=== PATIENT | female | born 1945 | race Caucasian/White ===

== ENCOUNTER → 2017-11-12 | Outpatient (CLI) | payer MEDICARE, BC ==
[~2017-11-12] MED LIST: ASA81BEC PO; ATORVASTATIN CA20 MG PO; AZITHROMYCIN 2250 MG PO; B COMPLEX1 EAC1 PO; B-12250 MCG PO; CALCIUM500 MG PO; CARVEDILOL12.5 MG PO; CARVEDILOL25 MG PO; CEFDINIR300 MG PO; CLEOCIN HCL300 MG PO; CO Q-10100 MG PO; COLACE100 MG PO; COQ1050 MG PO; COZAAR 50 MG TA50 M1 PO; COZAAR 50 MG TA50 M2 PO; DUONEB 2.5-0.5 M3 ML INH; ENTRESTO 24 MG1 EACH PO; FOLIC ACID1 MG PO; GLUCOSAMINE HC500 MG PO; KLOR-CON 1010 MEQ PO; L-THYROXINE PO; LASIX 40 MG TAB40 M1 PO; LEVOTHYROXINE 0.1 MG PO; MAXIMUM DAILY1 EACH PO; MIRAPEX0.125 MG PO; NITROGLYCERIN0.4 MG SL; NORCO 5-325 TA1 EACH PO; OMEGA 3 FISH O1 EACH PO; PERIOGARD473 ML SWISH&SPIT; PLAVIX 75 MG TA75 M1 PO; POTASSIUM20 PO; PREDNISONE 10 M10 MG PO; PULMICORT0.5 MG/22 INH; SINGULAIR 10 MG10 M1 PO; SYNTHROID100 MCG PO; TESSALON PERLE100 MG PO; TUMS PO; VITAMIN C1000 MG PO; VITAMIN D1000 UNI1 PO; VITAMIN E400 UNI3 PO; VITAMIN E400 UNIT PO; VITAMINC500 PO; ZETIA10 MG PO; ZOLOFT 50 MG TA50 M1 PO
== END ==
LOC: M.RAD 10:48
DX: J98.11 Atelectasis (principal)

== ENCOUNTER → 2018-12-09 | Outpatient (CLI) | payer MEDICARE, BC | LOC: M.RAD 12:06 | DX: I51.7 Cardiomegaly (principal); Z95.0 Presence of cardiac pacemaker ==

== ENCOUNTER → 2019-01-28 | Outpatient (CLI) | payer MEDICARE, BC ==
--- NOTE | 2019-01-28 13:21 | 2DMMODE ---
[place] [address] 2 D/M-MODE ECHOCARDIOGRAM Name: MAURICIO DOUGLAS Room: [facility]#: [id number] Admission: 01/28/19 Attend Phys: Yudelka Sheridan, Discharge: Date of : 41 Date of Service: 01/28/19 1320 Report #: [id number] THIS REPORT FOR: //name// APPROVED REPORT Study performed: 01/28/2019 09:48:14 EXAM: Comprehensive 2D, Doppler, and color-flow Echocardiogram Patient Location: Out-Patient BSA: 1.84 HR: 61 bpm BP: 110/58 mmHg Other Information Study Quality: Good Indications Cardiomyopathy 2D Dimensions IVSd: 9.26 (7-11mm) LVOT Diam: 20.02 (18-24mm) LVDd: 48.74 mm PWd: 7.74 (7-11mm) Ascending Ao: 26.01 (22-36mm) LVDs: 38.53 (25-40mm) Aortic Root: 24.37 mm Volumes Left Atrial Volume (Systole) LA ESV Index: 20.20 mL/m2 Aortic Valve AoV Peak Raphael.: 1.49 m/s AO Peak Gr.: 8.82 mmHg LVOT Max P.50 mmHg AO Mean Gr.: 4.91 mmHg LVOT Mean P.73 mmHg LVOT Max V: 0.61 m/s AO V2 VTI: 32.22 cm LVOT Mean V: 0.39 m/s SRAVANTHI (VTI): 1.54 cm2 LVOT V1 VTI: 15.77 cm Mitral Valve E/A Ratio: 1.59 MV Decel. Time: 211.34 ms MV E Max Raphael.: 0.79 m/s MV PHT: 61.29 ms MVA (PHT): 3.59 [place] [address] 2 D/M-MODE ECHOCARDIOGRAM Name: MAURICIO DOUGLAS Room: [facility]#: [id number] Admission: 01/28/19 Attend Phys: Yudelka Sheridan, Discharge: Date of : 41 Date of Service: 01/28/19 1320 Report #: [id number] TDI E/Lateral E': 9.88 E/Medial E': 8.78 Medial E' Raphael.: 0.09 m/s Lateral E' Raphael.: 0.08 m/s Pulmonary Valve PV Peak Raphael.: 0.67 m/s PV Peak Gr.: 1.81 mmHg Tricuspid Valve RAP Estimate: 5.00 mmHg TR Peak Gr.: 21.27 mmHg RVSP: 26.27 mmHg PA Pressure: 26.27 mmHg Left Ventricle The left ventricle is normal size. There is moderate diffuse hypokinesis of left ventricular wall motion. There is normal left ventricular wall thickness. Left ventricular systolic function is moderate to severely decreased. LVEF is 30-35%. The left ventricular diastolic function is normal. Right Ventricle The right ventricle is normal size. The right ventricular systolic function is normal. Pacemaker lead is present in the right ventricle. Atria The left atrium size is normal. Pacemaker lead is present in the right atrium. Aortic Valve Aortic valve is mildly calcified. Mild aortic regurgitation. There is no aortic valvular stenosis. Mitral Valve The mitral valve is normal in structure. Mild mitral regurgitation. No evidence of mitral valve stenosis. Tricuspid Valve The tricuspid valve is normal in structure. Mild tricuspid regurgitation. Pulmonic Valve The pulmonary valve is normal in structure. There is no pulmonic valvular reg[place]itation[place] [address] 2 D/M-MODE ECHOCARDIOGRAM Name: MAURICIO DOUGLAS Room: [facility]#: [id number] Admission: 01/28/19 Attend Phys: Yudelka Sheridan, Discharge: Date of : 41 Date of Service: 01/28/19 1320 Report #: [id number] The aortic root is normal in size. IVC is normal in size and collapses >50% with inspiration. Pericardium There is no pericardial effusion. <Conclusion> The left ventricle is normal size. There is normal left ventricular wall thickness. Left ventricular systolic function is moderate to severely decreased. LVEF is 30-35%. The left ventricular diastolic function is normal. The right ventricle is normal size. The left atrium size is normal. Pacemaker lead is present in the right atrium. Aortic valve is mildly calcified. Mild aortic regurgitation. There is no aortic valvular stenosis. The mitral valve is normal in structure. Mild mitral regurgitation. The tricuspid valve is normal in structure. Mild tricuspid regurgitation. IVC is normal in size and collapses >50% with inspiration. There is no pericardial effusion. There is moderate diffuse hypokinesis of left ventricular wall motion. <ELECTRONICALLY SIGNED> By: Munir Vital MD, FACC 01/28/19 1320 1320 1320 Munir Vital MD, FACC /INF
== END ==
LOC: M.CT 09:10 → M.CRD 10:00
DX: I08.3 Combined rheumatic disorders of mitral, aortic and tricuspid valves (principal); R41.3 Other amnesia; C81.90 Hodgkin lymphoma, unspecified, unspecified site; I11.0 Hypertensive heart disease with heart failure; I50.22 Chronic systolic (congestive) heart failure; I42.8 Other cardiomyopathies; Z91.041 Radiographic dye allergy status

== ENCOUNTER → 2019-06-23 | Outpatient (CLI) | payer MEDICARE, BC ==
[2019-06-23 09:29] LABS: ANION GAP 6 mmol/L (7-16); BUN 21 mg/dL (7-18); CALCIUM 8.5 mg/dL (8.5-10.1); CHLORIDE 109 mmol/L (98-107); CHOLESTEROL 140 mg/dL (<200); CO2 30 mmol/L (21-32); CREATININE 0.8 mg/dL (0.6-1.3); GLUCOSE 90 mg/dL (70-99); HDL CHOLESTEROL 62 mg/dL (>40); LDL CHOLESTEROL 74 mg/dL (<100); POTASSIUM 4.3 mmol/L (3.5-5.1); SERUM ASSESSMENT Clear; SODIUM 145 mmol/L (136-145); TC:HDL 2.3 Ratio (Not establshd); TRIGLYCERIDE 22 mg/dL (<150); VLDL 4 mg/dL (<40)
== END ==
LOC: M.LAB 08:50
PROVIDERS: Internal Medicine Cardiovascular Disease
DX: E78.00 Pure hypercholesterolemia, unspecified (principal); I25.5 Ischemic cardiomyopathy

== ENCOUNTER → 2019-09-07 | Outpatient (CLI) | payer MEDICARE, BC | LOC: M.RAD 11:13 | DX: I11.9 Hypertensive heart disease without heart failure (principal); Z95.0 Presence of cardiac pacemaker ==